=== PATIENT | male | born 1975 | race Caucasian/White ===

== ENCOUNTER 2017-07-08 19:09 | Emergency (ER) | payer OTHER ==
--- NOTE | 2017-07-08 20:03 | ER Document Report ---
ED Medical Screen (RME) - General Chief Complaint: Chest Pain Stated Complaint: CHEST PAIN Time Seen by Provider: 07/08/17 20:02 Notes: Patient reports left-sided chest tightness today. He denies any previous history of cardiac disease. No history of cardiac evaluation. He denies being under any stress. He denies any history of tobacco or drug use. States he does drink occasionally. No known chronic medical conditions. No major surgeries. TRAVEL OUTSIDE OF THE [place] IN LAST 30 DAYS: No - Related Data Allergies/Adverse Reactions: No Known Allergies Allergy (Verified 07/08/17 19:12) Past Medical History - Social History Frequency of alcohol use: Social Drug Abuse: None Renal/ Medical History: Denies: Hx Peritoneal Dialysis Physical Exam - Vital signs Vitals: Temp Pulse Resp BP Pulse Ox 98.3 F 78 20 166/103 H 100 07/08/17 19:23 07/08/17 19:23 07/08/17 19:23 07/08/17 19:23 07/08/17 19:23 Course - Vital Signs Vital signs: Temp Pulse Resp BP Pulse Ox 98.3 F 78 20 158/95 H 100 07/08/17 19:23 07/08/17 19:23 07/08/17 19:23 07/08/17 19:54 07/08/17 19:23
[2017-07-08 20:56] LABS: ABSOLUTE EOSINOPHILS # (AUTO) 0.1 10^3/uL (0.0-0.6); ABSOLUTE LYMPHOCYTES (AUTO) 1.3 10^3/uL (0.5-4.7); ABSOLUTE MONOCYTES (AUTO) 0.5 10^3/uL (0.1-1.4); ABSOLUTE NEUT (AUTO) 4.7 10^3/uL (1.7-8.2); BASOPHILS % (AUTO) 0.5 % (0-2); EOSINOPHILS % (AUTO) 0.9 % (0-6); HEMATOCRIT 45.1 % (37.9-51.0); HEMOGLOBIN 15.7 g/dL (13.5-17.0); LYMPHOCYTES % (AUTO) 19.3 % (13-45); MEAN CORPUSCULAR HEMOGLOBIN 33.2 pg (27.0-33.4); MEAN CORPUSCULAR HGB CONC 34.8 g/dL (32.0-36.0); MEAN CORPUSCULAR VOLUME 95 fl (80-97); MONOCYTES % (AUTO) 7.9 % (3-13); PLATELET COUNT 171 10^3/uL (150-450); RED BLOOD COUNT 4.73 10^6/uL (4.35-5.55); RED CELL DISTRIBUTION WIDTH 12.9 % (11.5-14.0); SEGMENTED NEUTROPHILS % (AUTO) 71.4 % (42-78); TOTAL CELLS COUNTED % (AUTO) 100 %; WHITE BLOOD COUNT 6.6 10^3/uL (4.0-10.5)
--- NOTE | 2017-07-08 21:00 | RADIOLOGY REPORT (SQ) ---
EXAM DESCRIPTION: CHEST PA/LAT COMPLETED DATE/TIME: 07/08/2017 8:49 pm REASON FOR STUDY: cp COMPARISON: None. EXAM PARAMETERS: NUMBER OF VIEWS: two views TECHNIQUE: Digital Frontal and Lateral radiographic views of the chest acquired. RADIATION DOSE: NA LIMITATIONS: none FINDINGS: LUNGS AND PLEURA: No opacities, masses or pneumothorax. No pleural effusion. MEDIASTINUM AND HILAR STRUCTURES: No masses or contour abnormalities. HEART AND VASCULAR STRUCTURES: Heart normal size. No evidence for failure. BONES: Dextroscoliosis. HARDWARE: None in the chest. OTHER: No other significant finding. IMPRESSION: Scoliosis. No acute cardiopulmonary disease. TECHNICAL DOCUMENTATION: JOB ID: [id number] [employer]- All Rights Reserved Reading location - IP/workstation name: [email or web address]
[2017-07-08 21:25] LABS: ALANINE AMINOTRANSFERASE 165 U/L (21-72); ALBUMIN 4.9 g/dL (3.5-5.0); ALKALINE PHOSPHATASE 79 U/L (38-126); ANION GAP 15 (5-19); ASPARTATE AMINO TRANSFERASE 162 U/L (17-59); BILIRUBIN,DIRECT 0.1 mg/dL (0.0-0.4); BILIRUBIN,TOTAL 0.9 mg/dL (0.2-1.3); BLOOD UREA NITROGEN 12 mg/dL (7-20); CALCIUM 10.1 mg/dL (8.4-10.2); CARBON DIOXIDE 27 mmol/L (22-30); CHLORIDE 99 mmol/L (98-107); GLUCOSE 107 mg/dL (75-110); POTASSIUM 4.4 mmol/L (3.6-5.0); SODIUM 140.5 mmol/L (137-145); TOTAL PROTEIN 7.4 g/dL (6.3-8.2)
[2017-07-09] MEDS ORDERED: AMLODIPINE BESYLATE 5 MG TABLET PO ONE (00:53)
--- NOTE | 2017-07-09 00:59 | ER Document Report ---
ED General - General Chief Complaint: Chest Pain Stated Complaint: CHEST PAIN Time Seen by Provider: 07/08/17 20:02 Mode of Arrival: Ambulatory Information source: Patient TRAVEL OUTSIDE OF THE [place] IN LAST 30 DAYS: No - HPI Notes: Patient is a otherwise healthy 42-year-old male presents to the emergency department with report that he has a chronic history of mild hypertension usually states he has blood pressures 130s over 90s in the clinic but states that he usually drinks alcohol daily 1-2 glasses of wine during the week and somewhat heavier on weekends but has not had anything for 48 hours and reports that he was feeling somewhat jittery earlier today. He denies having chest pain on my questioning, describes it more of a sensation of nervousness that he had. He reports no difficulty breathing or nausea or vomiting. The patient arrives hypertensive 166/103. The patient denies any seizure activity or shakes or DTs or hallucinations. Patient has a chronic history of mild scoliosis. He is a non-smoker. He denies any drug use. The patient denies any focal numbness or weakness, stating he felt more jittery and somewhat lightheaded. Family history both grandfathers had heart attacks in their 60s although both were smokers. Patient states his parents both are okay without heart disease history. - Related Data Allergies/Adverse Reactions: No Known Allergies Allergy (Verified 07/08/17 19:12) Past Medical History - General Information source: Patient - Social History Smoking Status: Never Smoker Frequency of alcohol use: Social Drug Abuse: None Lives with: Family Family History: CAD - Older age smokers Patient has suicidal ideation: No Patient has homicidal ideation: No Renal/ Medical History: Denies: Hx Peritoneal Dialysis Review of Systems - Review of Systems Notes: REVIEW OF SYSTEMS: CONSTITUTIONAL : Denies fever, chills, or sweats. Denies recent illness. EENT: Denies eye, ear, throat, or mouth pain or symptoms. Denies nasal or sinus congestion or discharge. Denies throat, tongue, or mouth swelling or difficulty swallowing. CARDIOVASCULAR: Denies palpitations or racing or irregular heart beat. Denies ankle edema. On my questioning, the patient denies any chest pain. RESPIRATORY: Denies cough, cold, or chest congestion. Denies shortness of breath, difficulty breathing, or wheezing. GASTROINTESTINAL: Denies abdominal pain or distention. Denies nausea, vomiting , or diarrhea. Denies blood in vomitus, stools, or per rectum. Denies black, tarry stools. Denies constipation. GENITOURINARY: Denies difficulty urinating, painful urination, burning, frequency, blood in urine, or discharge. MUSCULOSKELETAL: Denies back or neck pain or stiffness. Denies joint pain or swelling. SKIN: Denies rash, lesions or sores. HEMATOLOGIC : Denies easy bruising or bleeding. LYMPHATIC: Denies swollen, enlarged glands. NEUROLOGICAL: Denies confusion or altered mental status. Denies passing out or loss of consciousness. Denies headache. Denies weakness or paralysis or loss of use of either side. Denies problems with gait or speech. Denies seizures. Patient states he felt generally jittery somewhat anxious. PSYCHIATRIC: Denies depression, suicidal ideation, or homicidal ideation. ALL OTHER SYSTEMS REVIEWED AND NEGATIVE. Dictation was performed using [employer] voice recognition software Physical Exam - Vital signs Vitals: Temp Pulse Resp BP Pulse Ox 98.3 F 78 20 166/103 H 100 07/08/17 19:23 07/08/17 19:23 07/08/17 19:23 07/08/17 19:23 07/08/17 19:23 - Notes Notes: PHYSICAL EXAMINATION: GENERAL: Well-appearing, well-nourished and in no acute distress. HEAD: Atraumatic, normocephalic. EYES: Pupils equal round and reactive to light, extraocular movements intact, sclera anicteric, conjunctiva are normal. ENT: Nares patent, oropharynx clear without exudates. Moist mucous membranes. NECK: Normal range of motion, supple without lymphadenopathy LUNGS: Breath sounds clear to auscultation bilaterally and equal. No wheezes rales or rhonchi. HEART: Regular rate and rhythm without murmurs ABDOMEN: Soft, nontender, nondistended abdomen. No guarding, no rebound. No masses appreciated. Musculoskeletal: Normal range of motion, no pitting or edema. No cyanosis. Mild scoliosis. NEUROLOGICAL: Cranial nerves grossly intact. Normal speech, normal gait. Normal sensory, motor exams PSYCH:. Somewhat anxious with questioning. No tremor. Normal affect. SKIN: Warm, Dry, normal turgor, no rashes or lesions noted. Course - Re-evaluation Re-evalutation: 07/09/17 00:58 Patient on questioning stated that he had a rather rigorous exercise regimen with jogging and running 5K's and regular workout sessions, and he reported no chest discomfort or any problems with any of these sessions. Repeat blood pressure was 143/98 and then was 162/109 when I was in the room with the patient. Triage blood pressure was 166/103. I discussed with the patient starting him on a low-dose antihypertensive with Norvasc. Liver enzymes were mildly elevated consistent with mild alcohol use. No obvious evidence for DTs. 07/09/17 00:59 Given the patient's exercise regimen and is negative workup, the patient is thought to be at low risk for cardiac disease, but he will have follow-up with his regular practitioner regarding his blood pressure and for further cardiac workup. 07/09/17 01:04 - Vital Signs Vital signs: Temp Pulse Resp BP Pulse Ox 98.3 F 78 20 158/95 H 100 07/08/17 19:23 07/08/17 19:23 07/08/17 19:23 07/08/17 19:54 07/08/17 19:23 - Laboratory Result Diagrams: 07/08/17 20:39 07/08/17 20:39 Laboratory results interpreted by me: 07/08/17 20:39 AST 162 H ALT 165 H Discharge - Discharge Clinical Impression: Hypertension Qualifiers: Hypertension type: essential hypertension Qualified Code(s): I10 - Essential ( primary) hypertension Condition: Stable Disposition: HOME, SELF-CARE Instructions: High Blood Pressure ([facility]) Additional Instructions: Your blood pressures today were 166/103, 143/98, 162/109. Check and record your blood pressures at home to discuss with your regular practitioner. Return to the emergency department in case of chest pain, difficulty breathing or weakness. Prescriptions: Amlodipine Besylate [Norvasc 5 mg Tablet] 5 mg PO DAILY #30 tablet Forms: Return to Work
[2017-07-09 01:39] VITALS: BP 143/95
--- NOTE | 2017-07-09 07:26 | EKG REPORT ---
SEVERITY:- NORMAL ECG - SINUS RHYTHM : Confirmed by: Tom Quintero MD 09-Jul-2017 07:25:29
== END 2017-07-09 01:30 | disposition home or self-care (01) ==
LOC: ER 19:09
DX: I10 Essential (primary) hypertension (principal); R07.9 Chest pain, unspecified; R74.8 Abnormal levels of other serum enzymes; Z72.89 Other problems related to lifestyle; M41.9 Scoliosis, unspecified
CPT/HCPCS: 36415; 71046; 80053; 84484; 85025; 93005; 93010; 99285